=== PATIENT | female | born 1945 | race Caucasian/White ===

== ENCOUNTER → 2018-06-27 | Outpatient (CLI) | payer MEDICARE, OTHER ==
[~2018-06-27] MED LIST: ASPIRIN EC81 M1 PO; BONINE25 MG PO; CALCIUM 600 +1 EAC7 PO; DULERA 100 MCG/13 GM IH; FLONASE 0.05%50 MCG NASAL; GLUCOPHAGE XR500 MG PO; PRINIVIL20 MG PO; PROTONIX40 M2 PO; SINGULAIR 10 MG10 M1 PO; TIROSINT100 MCG PO; TROMBONEX-D CA1 EACH PO; ZYRTEC10 M2 PO
== END ==
LOC: M.RAD 10:00
DX: Z12.31 Encounter for screening mammogram for malignant neoplasm of breast (principal)

== ENCOUNTER → 2020-10-15 | Outpatient (CLI) | payer OTHER | LOC: M.RAD 10:05 | PROVIDERS: ATTEND Family Medicine | DX: Z12.31 Encounter for screening mammogram for malignant neoplasm of breast (principal) ==

== ENCOUNTER 2021-04-28 13:46 | Emergency (ER) | payer OTHER ==
[~2021-04-28] VITALS: Ht 162.6 cm; Wt 73.9 kg
[2021-04-28] MEDS ORDERED: LIPITOR 20 MG T20 M1 PO (14:00)
[2021-04-28 15:56] VITALS: BP 184/86
== END 2021-04-28 15:56 | disposition home or self-care (01) ==
LOC: M.ERS 13:46
DX: S90.32XA Contusion of left foot, initial encounter (principal); J45.909 Unspecified asthma, uncomplicated; E11.9 Type 2 diabetes mellitus without complications; E03.9 Hypothyroidism, unspecified; I10 Essential (primary) hypertension; Z79.899 Other long term (current) drug therapy; Z79.82 Long term (current) use of aspirin; Z88.0 Allergy status to penicillin; Z87.891 Personal history of nicotine dependence; X50.1XXA Overexertion from prolonged static or awkward postures, initial encounter; Y93.89 Activity, other specified; Y92.89 Other specified places as the place of occurrence of the external cause; Y99.8 Other external cause status

== ENCOUNTER → 2021-05-08 | Outpatient (CLI) | payer OTHER ==
[~2021-05-08] MED LIST changes: +LIPITOR 20 MG T20 M1 PO
== END ==
LOC: M.ULTRA 12:45
PROVIDERS: ATTEND Family Medicine
DX: S90.32XD Contusion of left foot, subsequent encounter (principal); M79.675 Pain in left toe(s); M79.89 Other specified soft tissue disorders; X58.XXXD Exposure to other specified factors, subsequent encounter

== ENCOUNTER → 2021-05-16 | Outpatient (CLI) | payer OTHER | END | disposition home or self-care (01) | LOC: M.INT 12:49 | PROVIDERS: ATTEND Family Medicine | DX: M79.672 Pain in left foot (principal); S90.32XA Contusion of left foot, initial encounter; I10 Essential (primary) hypertension; E11.9 Type 2 diabetes mellitus without complications; E03.9 Hypothyroidism, unspecified; J45.909 Unspecified asthma, uncomplicated; Z98.890 Other specified postprocedural states; Z79.899 Other long term (current) drug therapy; Z88.0 Allergy status to penicillin; X58.XXXA Exposure to other specified factors, initial encounter; Y93.89 Activity, other specified; Y92.89 Other specified places as the place of occurrence of the external cause; Y99.8 Other external cause status ==